=== PATIENT | female | born 1990 | race Caucasian/White ===

== ENCOUNTER 2021-07-20 08:53 | Emergency (ER) | payer OTHER ==
[~2021-07-20] VITALS: Ht 160 cm; Wt 45.8 kg
[2021-07-20] MEDS ORDERED: PRENA1 TRUE CO1 EACH PO (09:11)
== END 2021-07-20 14:08 | disposition home or self-care (01) ==
LOC: ER 08:53
DX: O26.891 Other specified pregnancy related conditions, first trimester (principal); O26.851 Spotting complicating pregnancy, first trimester; Z3A.01 Less than 8 weeks gestation of pregnancy; Z03.818 Encounter for observation for suspected exposure to other biological agents ruled out

== ENCOUNTER 2021-08-06 07:47 | Outpatient (CLI) | payer OTHER ==
[~2021-08-06 07:47] MED LIST: PRENA1 TRUE CO1 EACH PO
== END 2021-08-06 07:48 | disposition home or self-care (01) ==
LOC: LAB 07:47
PROVIDERS: ATTEND Obstetrics & Gynecology
DX: Z34.00 Encounter for supervision of normal first pregnancy, unspecified trimester (principal); Z34.01 Encounter for supervision of normal first pregnancy, first trimester

== ENCOUNTER 2021-08-17 22:53 | Emergency (ER) | payer OTHER ==
[~2021-08-17] VITALS: Ht 157.5 cm; Wt 46.7 kg
[2021-08-18] MEDS ORDERED: ACETAMINOPHEN650 M2 PO (01:29)
== END 2021-08-18 01:43 | disposition home or self-care (01) ==
LOC: ER 22:53
DX: O26.859 Spotting complicating pregnancy, unspecified trimester (principal); Z3A.11 11 weeks gestation of pregnancy

== ENCOUNTER 2021-08-24 09:24 | Outpatient (CLI) | payer OTHER ==
[~2021-08-24 09:24] MED LIST changes: +ACETAMINOPHEN650 M2 PO
== END 2021-08-24 11:25 | disposition home or self-care (01) ==
LOC: PRENATAL 09:24
PROVIDERS: ATTEND Obstetrics & Gynecology Maternal & Fetal Medicine
DX: Z36.89 Encounter for other specified antenatal screening (principal); O36.80X1 Pregnancy with inconclusive fetal viability, fetus 1; Z3A.12 12 weeks gestation of pregnancy

== ENCOUNTER 2021-10-07 09:48 | Outpatient (CLI) | payer OTHER | END 2021-10-07 11:00 | disposition home or self-care (01) | LOC: PRENATAL 09:48 | PROVIDERS: ATTEND Obstetrics & Gynecology Maternal & Fetal Medicine | DX: O35.0XX1 Maternal care for (suspected) central nervous system malformation in fetus, fetus 1 (principal); O35.3XX1 Maternal care for (suspected) damage to fetus from viral disease in mother, fetus 1; O98.512 Other viral diseases complicating pregnancy, second trimester; Z36.89 Encounter for other specified antenatal screening; Z3A.18 18 weeks gestation of pregnancy ==

== ENCOUNTER 2022-01-13 09:43 | Outpatient (CLI) | payer OTHER | END 2022-01-13 11:05 | disposition home or self-care (01) | LOC: PRENATAL 09:43 | PROVIDERS: ATTEND Obstetrics & Gynecology Maternal & Fetal Medicine | DX: O26.849 Uterine size-date discrepancy, unspecified trimester (principal); O35.0XX0 Maternal care for (suspected) central nervous system malformation in fetus, not applicable or unspecified; O36.8199 Decreased fetal movements, unspecified trimester, other fetus; O36.5990 Maternal care for other known or suspected poor fetal growth, unspecified trimester, not applicable or unspecified; Z3A.32 32 weeks gestation of pregnancy ==